=== PATIENT | male | born 1965 | race Caucasian/White ===

== ENCOUNTER 2016-06-19 18:50 | Emergency (ER) | payer BC, OTHER ==
[2016-06-19 20:13] VITALS: BP 150/101
--- NOTE | 2016-06-19 20:25 | UC ---
Shoulder Pain HPI - HPI Summary HPI Summary: works at [employer]. Left arm was hyperextend during a restraint this afternoon. Hurts to raise his arm - History of Current Complaint Chief Complaint: UCUpperExtremity Stated Complaint: SHOULDER INJURY-WC Time Seen by Provider: 06/19/16 20:17 Hx Obtained From: Patient Onset/Duration: Sudden Onset, Lasting Hours, Still Present Timing: Constant Severity Initially: Moderate Severity Currently: Moderate Location Of Pain: Is Discrete @ - anterior left shoulder Pain Intensity: 5 Pain Scale Used: 0-10 Numeric Character: Stiffness - and feels a click with movement Aggravating Factor(s): Movement, Lifting Alleviating Factor(s): Rest Associated Signs And Symptoms: Positive: Negative Related History: Occupational Injury, Dominant Hand Right - Allergies/Home Medications Allergies/Adverse Reactions: Allergies Allergy/AdvReac Type Severity Reaction Status Date / Time No Known Allergies Allergy Verified 06/19/16 20:07 Home Medications: Home Medications Bp Medication DAILY 06/19/16 [History] PMH/Surg Hx/FS Hx/Imm Hx Previously Healthy: No Cardiovascular History Of: Reports: Hypertension Denies: Pacemaker/ICD - Surgical History Surgical History: Yes Surgery Procedure, Year, and Place: PARTIAL THYROIDECTOMY - Family History Known Family History: Positive: None - Social History Occupation: Employed Full-time Lives: With Family Alcohol Use: None Substance Use Type: None Smoking Status (MU): Never Smoked Tobacco - Immunization History Most Recent Influenza Vaccination: March 2015 Most Recent Tetanus Shot: ~2009 Review of Systems Constitutional: Negative Skin: Negative Eyes: Negative ENT: Negative Respiratory: Negative Cardiovascular: Negative Gastrointestinal: Negative Genitourinary: Negative Motor: Decreased ROM - left shoulder Neurovascular: Negative Musculoskeletal: Arthralgia - anterior left shoulder Neurological: Negative Psychological: Negative All Other Systems Reviewed And Are Negative: Yes Physical Exam Triage Information Reviewed: Yes Appearance: Well-Appearing, Well-Nourished, Pain Distress - mild Vital Signs: Initial Vital Signs Temp 98.7 F 06/19/16 20:08 Pulse 81 06/19/16 20:08 Resp 18 06/19/16 20:08 BP 150/101 06/19/16 20:08 Pulse Ox 99 06/19/16 20:08 Vital Signs Reviewed: Yes Eye Exam: Normal Eyes: Positive: Conjunctiva Clear ENT Exam: Normal ENT: Positive: Normal ENT inspection, Hearing grossly normal. Negative: Nasal congestion, Nasal drainage, Tonsillar swelling, Tonsillar exudate, Trismus, Muffled/hoarse voice Neck exam: Normal Neck: Positive: Supple, Nontender, No Lymphadenopathy Respiratory Exam: Normal Respiratory: Positive: Chest non-tender, Lungs clear, Normal breath sounds, No respiratory distress, No accessory muscle use Cardiovascular Exam: Normal Cardiovascular: Positive: RRR, No Murmur, Pulses Normal, Brisk Capillary Refill Musculoskeletal: Positive: No Edema, Strength Limited @ - left shoulder, ROM Limited @ - left shoulder Neurological Exam: Normal Neurological: Positive: Alert, Muscle Tone Normal Psychological Exam: Normal Skin Exam: Normal Diagnostics - Laboratory Diagnostic Studies Completed/Ordered: Arthritic changes-no acute gordon injury Shoulder Course/Dx - Course Assessment/Plan: antiinflammatory, muscle relaxer, follow with orthopedic, patient refused time off from work - Differential Dx/Diagnosis Differential Diagnosis/HQI/PQRI: Arthritis, Fracture (Closed), Rotator Cuff Injury, Sprain, Strain Provider Diagnoses: Left shoulder strain Discharge - Discharge Plan Condition: Stable Disposition: HOME Prescriptions: Cyclobenzaprine TAB* [Flexeril TAB*] 10 mg PO TID PRN #10 tab PRN Reason: muscle spasm Patient Education Materials: Rotator Cuff Injury (ED) Referrals: Jose Aguirre MD [Medical Doctor] - 4 Days Shari Herring MD [Primary Care Provider] -
--- NOTE | 2016-06-19 21:13 | RAD ---
HISTORY: Left shoulder injury and pain COMPARISONS: None VIEWS: 3, Frontal internal rotation, external rotation, and outlet views of the left shoulder FINDINGS: BONE DENSITY: Normal. BONES: There is no displaced fracture. JOINTS: There is mild to moderate osteoarthritis of the a.c. and glenohumeral joints ALIGNMENT: There is no dislocation. SOFT TISSUES: Unremarkable. OTHER FINDINGS: None. IMPRESSION: OSTEOARTHRITIS. NO ACUTE OSSEOUS INJURY. IF SYMPTOMS PERSIST, RECOMMEND REPEAT IMAGING.
[2016-06-19] MEDS ORDERED: Cyclobenzaprine TAB* 10 MG PO ONE (21:27)
== END 2016-06-19 21:40 | disposition home or self-care (01) ==
LOC: UCCORT 18:50
DX: S46.912A Strain of unspecified muscle, fascia and tendon at shoulder and upper arm level, left arm, initial encounter (principal); X50.0XXA Overexertion from strenuous movement or load, initial encounter; I10 Essential (primary) hypertension
CPT/HCPCS: 99212; A9270-GY; G0463

== ENCOUNTER 2017-03-25 13:26 | Emergency (ER) | payer BC, OTHER ==
[2017-03-25 14:33] VITALS: BP 150/88
[2017-03-25] MEDS ORDERED: Tetan/Diph/Pertus SYR(Tdap)* 0.5 ML SYR(BOOSTRIX) use SYR IM ONE (14:59)
--- NOTE | 2017-03-25 15:05 | UC ---
Hand/Wrist HPI - HPI Summary HPI Summary: Left third finger crushed with a piece of wood last nigh, laceration on damon side of finger nail beed eechymotic - History Of Current Complaint Chief Complaint: UCUpperExtremity Stated Complaint: LEFT HAND MIDDLE FINGER INJURY Time Seen by Provider: 03/25/17 14:55 Hx Obtained From: Patient ?: No Mechanism Of Injury: crush injury Onset/Duration: Sudden Onset, Lasting Days - last night Severity Initially: Moderate Severity Currently: Moderate Pain Intensity: 6 Pain Scale Used: 0-10 Numeric Character Of Pain: Aching, Throbbing Alleviating Factor(s): Nothing Associated Signs And Symptoms: Positive: Swelling, Redness, Bruising Related History: Dominant Hand Right - Allergies/Home Medications Allergies/Adverse Reactions: Allergies Allergy/AdvReac Type Severity Reaction Status Date / Time No Known Allergies Allergy Verified 03/25/17 14:22 Home Medications: Home Medications Bisoprolol TAB* [Zebeta TAB*] 2.5 mg DAILY 03/25/17 [History Confirmed 03/25/17] PMH/Surg Hx/FS Hx/Imm Hx Previously Healthy: Yes Cardiovascular History: Hypertension Psychological History: Other Other Psychological History: Insomnia - Surgical History Surgical History: Yes Surgery Procedure, Year, and Place: PARTIAL THYROIDECTOMY - Family History Known Family History: Positive: None - Social History Occupation: Employed Full-time Lives: With Family Alcohol Use: None Substance Use Type: None Smoking Status (MU): Never Smoked Tobacco - Immunization History Most Recent Influenza Vaccination: 2017 Most Recent Tetanus Shot: ~2009 Vaccination Up to Date: No Review of Systems Constitutional: Negative Skin: Negative Eyes: Negative ENT: Negative Respiratory: Negative Cardiovascular: Negative Gastrointestinal: Negative Genitourinary: Negative Motor: Negative Neurovascular: Negative Musculoskeletal: Negative, Edema - distal left third finger Neurological: Negative Psychological: Negative Is Patient Immunocompromised?: No All Other Systems Reviewed And Are Negative: Yes Physical Exam Triage Information Reviewed: Yes Appearance: Well-Appearing, No Pain Distress, Well-Nourished Vital Signs: Initial Vital Signs Temp 98 F 03/25/17 14:23 Pulse 68 03/25/17 14:23 Resp 16 03/25/17 14:23 BP 150/88 03/25/17 14:23 Pulse Ox 100 03/25/17 14:23 Vital Signs Reviewed: Yes Eye Exam: Normal Eyes: Positive: Conjunctiva Clear ENT Exam: Normal ENT: Positive: Normal ENT inspection, Hearing grossly normal, Pharynx normal. Negative: Nasal congestion, Trismus, Muffled voice, Hoarse voice Neck exam: Normal Neck: Positive: Supple, Nontender Respiratory Exam: Normal Respiratory: Positive: Chest non-tender, No respiratory distress, No accessory muscle use Cardiovascular Exam: Normal Cardiovascular: Positive: RRR, No Murmur, Brisk Capillary Refill Musculoskeletal Exam: Other Musculoskeletal: Positive: Strength Limited @ - Distal left third finger, Edema @ - distal left third finger Neurological Exam: Normal Neurological: Positive: Alert, Muscle Tone Normal Psychological Exam: Normal Skin Exam: Other Skin: Positive: Other - Crush injury with open skin left third finger Diagnostics - Radiology No standard instances Xray Interpretation: Positive (See Comments) - no displased comminuted tuft fracture Radiology Interpretation Completed By: ED Physician Hand/Wrist Course/Dx - Course Course Of Treatment: dressing, antibiodic follow with hand surgeon - Differential Dx/Diagnosis Provider Diagnoses: open alfredo fracture left middle finger, Hypertension in poor control, up date tetanus vaccine Discharge - Discharge Plan Condition: Stable Disposition: HOME Prescriptions: Amoxicillin/Clavulanate TAB* [Augmentin TAB 875*] 875 mg PO BID #20 tab Ibuprofen TAB* [Motrin TAB* 800 MG] 800 mg PO Q8H #30 tab Patient Education Materials: Finger Fracture (ED), Skin Avulsion (ED), Hypertension (ED), Crush Injury (ED) Referrals: Antonio Hernández MD [Medical Doctor] - 4 Days Shari Herring MD [Primary Care Provider] - 2 Weeks
--- NOTE | 2017-03-25 15:31 | RAD ---
INDICATION: Injury COMPARISON: None TECHNIQUE: AP, lateral, and oblique views were obtained. FINDINGS: There is a comminuted fracture of the tuft with mild distraction. There are no other fractures. There is soft tissue swelling.. IMPRESSION: TUFT FRACTURE.
== END 2017-03-25 16:56 | disposition home or self-care (01) ==
LOC: UCCORT 13:26
DX: S62.663B Nondisplaced fracture of distal phalanx of left middle finger, initial encounter for open fracture (principal); W23.0XXA Caught, crushed, jammed, or pinched between moving objects, initial encounter; Y93.89 Activity, other specified; Y92.9 Unspecified place or not applicable; Z23 Encounter for immunization; I10 Essential (primary) hypertension; G47.00 Insomnia, unspecified; E89.0 Postprocedural hypothyroidism
CPT/HCPCS: 73140; 90471; 90715; 99213; G0463

== ENCOUNTER 2018-06-04 08:32 | Emergency (ER) | payer BC, OTHER ==
--- OUTSIDE RECORDS SUMMARY | 2018-06-04 08:43 | XMS REPORT | Continuity of Care Document ---
:1965 External Reference #:[id number] Author Name Shari Herring MD Address [address] [place] [address] Care Team Providers Name Role Phone Shari Herring MD Care Team Information Manager Of Training Unavailable Payers Type Date Identification Numbers Payment Provider Subscriber Effective: Policy Number: [id number] [facility] [employer] [place] 2011 PayID: [id number] [facility] [address] [place] [address] Advance Directives Description No Information Available Problems Date Description Provider Status Onset: 06/30/2013 Obstructive sleep apnea syndrome Shari Herring MD Active Onset: 12/29/2010 Insomnia Shari Herring MD Active Onset: 04/26/2015 Lack or loss of sexual desire Shari Herring MD Active Onset: 04/26/2015 Essential hypertension Shari Herring MD Active Onset: 04/26/2015 Malignant tumor of thyroid gland Shari Herring MD Active Onset: 05/27/2018 Low back pain Shari Herring MD Active Onset: 04/17/2016 Palpitations Shari Herring MD Active Family History Date Family Member(s) Problem(s) Comments General Alcoholism Father Alcoholism Father due to Liver Disease () - alcoholic Mother Cancer, Skin melanoma Social History Type Date Description Comments Sex Unknown Marital Status Lives With Spouse Lives With Daughter Lives With Son Pets 1 dog Pets 1 cat ETOH Use Denies alcohol use Tobacco Use Start: Unknown Patient has never smoked Smoking Status Reviewed: 05/27/18 Patient has never smoked Allergies, Adverse Reactions, Alerts Date Description Reaction Status Severity Comments 11/25/2009 Toprol XL ED Active 11/01/2015 Ambien Active Severe daytime sleepiness on CR formulation - short acting is ok Medications Medication Date Status Form Strength Qnty SIG Indications Ordering Provider Vardenafil HCL 05/27/ Active Tablets 20mg 18tab 1 by mouth F52.0 iNma, 2019 s daily as MD Shari needed Azelastine HCL 05/27/ Active Solution 0.15% 30ml 2 sprays J31.0 Nima (Nasal) 2018 each MD Shari nostril twice a day as needed for nasal congestion Meloxicam 04/17/ Active Tablets 15mg 30tab 1 tab by M54.5 Nima 2016 s mouth daily MD Shari for pain for 1-2 weeks, then daily as needed for pain Cyclobenzaprine 04/17/ Active Tablets 10mg 30tab 1 by mouth M54.5 TEGAN Herring 2015 s every at MD Shari bedtime x 1-2 weeks, then as needed muscle spasm Zolpidem Tartrate 10/31/ Active Tablets 10mg 30tab by mouth G47.00 Nima 2016 s every at MD Shari bedtime as needed insomnia mdd 1 Bisoprolol 07/01/ Hx Tablets 5mg 45tab 1/2 tab by Gadiel Herring 2016 - s mouth every MD Shari 05/27/ day 2019 Zolpidem Tartrate 05/18/ Hx Tablets 12.5mg 30tab 1 by mouth G47.00 Nima ER 2014 - ER s every at MD Shari 10/31/ bedtime as 2015 needed Levitra 05/18/ Hx Tablets 20mg 18tab 1 by mouth F52.0 Nima 2015 - s daily as MD Shari needed 2019 Levitra 12/15/ Hx Tablets 10mg 10tab 1 every day 302.71 Nima 2013 - s as needed MD Shari 2014 Enalapril Maleate 02/17/ Hx Tablets 10mg 90tab 1 by mouth 401.1 Nima 2012 - s every day MD Shari 2014 Zolpidem Tartrate 11/30/ Hx Tablets 10mg 30tab 1 by mouth 780.52 Nima 2008 - s every at MD Shari 05/18/ bedtime as 2014 needed insomnia; avoid daily use of this medicine due to risk of dependency Ambien / Hx Tablets 5mg 30tab po qhs prn Unknown 0000 - s for insomnia 2014 Bystolic / Hx Tablets 2.5mg 30tab 1 by mouth R00.2 Nima 0000 - s every day MD Shari 2016 I10 Immunizations CPT Code Status Date Vaccine Reaction Lot # [id number] Given 03/16/2018 Flu Vaccine NOS WORK Q2039 Given 02/26/2017 Flu Vaccine NOS Q2039 Given 02/15/2015 Flu Vaccine NOS [id number] Given 01/08/2014 Afluria Or Fluvirin Flu Vac Intramuscular 39789 Given 07/06/2011 Tdap (Adacel) Ages 7 And Above VIS DATE 03/27/08 Only Vital Signs Date Vital Result Comment 05/27/2018 8:40am Weight 249.00 lb Heart Rate 72 /min BP Systolic 122 mmHg BP Diastolic 80 mmHg Respiratory Rate 18 /min Height 70.50 inches 5'10.50" BMI (Body Mass Index) 35.2 kg/m2 11/12/2017 9:36am Weight 246.00 lb Heart Rate 76 /min BP Systolic 132 mmHg BP Diastolic 80 mmHg Respiratory Rate 18 /min Height 70.50 inches 5'10.50"05/14/17 BMI (Body Mass Index) 34.8 kg/m2 05/14/2017 8:44am Weight 244.00 lb Heart Rate 76 /min BP Systolic 132 mmHg BP Diastolic 90 mmHg Respiratory Rate 18 /min Height 70.50 inches 5'10.50"05/14/17 BMI (Body Mass Index) 34.5 kg/m2 11/06/2016 9:17am Weight 247.00 lb Heart Rate 76 /min BP Systolic 122 mmHg BP Diastolic 72 mmHg Respiratory Rate 18 /min Height 70.50 inches 5'10.50"04/17/16 BMI (Body Mass Index) 34.9 kg/m2 10/23/2016 3:21pm Weight 249.00 lb BP Systolic 132 mmHg BP Diastolic 80 mmHg Respiratory Rate 18 /min Height 70.50 inches 5'10.50"04/17/16 BMI (Body Mass Index) 35.2 kg/m2 04/17/2016 9:07am Weight 244.00 lb Heart Rate 76 /min BP Systolic 130 mmHg BP Diastolic 100 mmHg BP Systolic Recheck 128 mmHg BP Diastolic Recheck 78 mmHg Respiratory Rate 18 /min Height 70.50 inches 5'10.50"04/17/16 BMI (Body Mass Index) 34.5 kg/m2 11/01/2015 9:00am Weight 246.00 lb Heart Rate 82 /min BP Systolic 122 mmHg BP Diastolic 90 mmHg Respiratory Rate 18 /min Height 70.50 inches 5'10.50" BMI (Body Mass Index) 34.8 kg/m2 07/05/2015 3:58pm Weight 251.31 lb Heart Rate 62 /min BP Systolic 130 mmHg BP Diastolic 90 mmHg 04/26/2015 9:14am Weight 252.00 lb Heart Rate 84 /min BP Systolic 142 mmHg BP Diastolic 90 mmHg Respiratory Rate 18 /min Height 70.50 inches 5'10.50" Done On 05/18/14 BMI (Body Mass Index) 35.6 kg/m2 10/31/2014 10:42am Weight 247.00 lb Heart Rate 82 /min BP Systolic 140 mmHg BP Diastolic 90 mmHg Respiratory Rate 18 /min Height 70.50 inches 5'10.50" Done On 05/18/14 BMI (Body Mass Index) 34.9 kg/m2 05/18/2014 2:32pm Weight 237.00 lb Heart Rate 76 /min BP Systolic 160 mmHg BP Diastolic 100 mmHg Respiratory Rate 18 /min Height 70.50 inches 5'10.50" Done On 05/18/14 BMI (Body Mass Index) 33.5 kg/m2 03/27/2014 8:50am BP Systolic 122 mmHg BP Diastolic 76 mmHg 03/27/2014 8:50am Weight 244.00 lb Heart Rate 68 /min BP Systolic 146 mmHg BP Diastolic 90 mmHg Respiratory Rate 18 /min Height 70.75 inches 5'10.75" 12/15/2013 8:46am Weight 246.00 lb Heart Rate 66 /min BP Systolic 140 mmHg BP Diastolic 88 mmHg Respiratory Rate 18 /min Height 70.75 inches 5'10.75" 09/15/2013 8:58am Weight 248.00 lb Heart Rate 80 /min BP Systolic 140 mmHg BP Diastolic 80 mmHg Respiratory Rate 18 /min Height 71 inches 5'11" 06/30/2013 8:03am Weight 241.00 lb Heart Rate 84 /min BP Systolic 148 mmHg BP Diastolic 90 mmHg Respiratory Rate 18 /min Height 71 inches 5'11" 04/07/2013 9:48am Weight 247.00 lb Heart Rate 72 /min BP Systolic 130 mmHg BP Diastolic 90 mmHg Respiratory Rate 18 /min Height 70.25 inches 5'10.25" (Done On 08/05/12) 02/17/2013 10:56am Weight 245.00 lb Heart Rate 88 /min BP Systolic 130 mmHg BP Diastolic 80 mmHg Respiratory Rate 18 /min Height 70.25 inches 5'10.25" (Done On 08/05/12) 01/04/2013 9:47am BP Systolic 132 mmHg BP Diastolic 90 mmHg 01/04/2013 9:47am Weight 241.00 lb Heart Rate 80 /min BP Systolic 130 mmHg BP Diastolic 98 mmHg Respiratory Rate 18 /min Height 70.25 inches 5'10.25" (Done On 08/05/12) 08/05/2012 8:51am BP Systolic 122 mmHg BP Diastolic 82 mmHg 08/05/2012 8:51am Weight 231.00 lb Heart Rate 80 /min BP Systolic 142 mmHg BP Diastolic 100 mmHg Respiratory Rate 18 /min Height 70.25 inches 5'10.25" 01/04/2012 3:23pm Weight 230.00 lb Heart Rate 76 /min BP Systolic 138 mmHg BP Diastolic 90 mmHg Respiratory Rate 18 /min Height 71 inches 5'11" (Done On 07/06/11) 07/06/2011 3:28pm Weight 224.00 lb Heart Rate 92 /min BP Systolic 136 mmHg BP Diastolic 90 mmHg Respiratory Rate 18 /min Height 71 inches 5'11" 12/29/2010 1:16pm BP Systolic 122 mmHg BP Diastolic 70 mmHg 12/29/2010 1:16pm Weight 237.00 lb Heart Rate 88 /min BP Systolic 140 mmHg BP Diastolic 90 mmHg Respiratory Rate 18 /min Height 70.5 inches 5'10.50" (Done On 08/29/10) 08/29/2010 1:43pm BP Systolic 140 mmHg BP Diastolic 80 mmHg 08/29/2010 1:43pm Weight 234.00 lb Heart Rate 96 /min BP Systolic 142 mmHg BP Diastolic 80 mmHg Respiratory Rate 18 /min Height 70.5 inches 5'10.50" 05/23/2010 4:02pm BP Systolic 122 mmHg BP Diastolic 88 mmHg 05/23/2010 4:02pm Weight 242.00 lb Heart Rate 84 /min BP Systolic 130 mmHg BP Diastolic 90 mmHg Respiratory Rate 18 /min 05/08/2010 3:26pm Weight 245.00 lb Heart Rate 88 /min BP Systolic 140 mmHg BP Diastolic 94 mmHg Respiratory Rate 18 /min 11/25/2009 2:56pm Weight 244.00 lb Heart Rate 84 /min BP Systolic 124 mmHg BP Diastolic 80 mmHg Respiratory Rate 18 /min 06/03/2009 3:40pm Weight 234.00 lb Heart Rate 80 /min BP Systolic 130 mmHg BP Diastolic 80 mmHg Respiratory Rate 18 /min Height 71 inches 5'11" 11/30/2008 3:24pm BP Systolic 140 mmHg BP Diastolic 90 mmHg 11/30/2008 3:24pm Weight 237.00 lb Heart Rate 84 /min BP Systolic 150 mmHg BP Diastolic 94 mmHg Respiratory Rate 18 /min 07/02/2008 2:50pm Body Temperature 96.8 F Weight 232.00 lb Heart Rate 88 /min BP Systolic 130 mmHg BP Diastolic 90 mmHg Respiratory Rate 18 /min Height 70.5 inches 5'10.50" O2 % BldC Oximetry 98 % 11/29/2007 4:23pm Weight 244.00 lb Heart Rate 80 /min BP Systolic 120 mmHg BP Diastolic 84 mmHg Respiratory Rate 18 /min Height 18 inches 1'6" 10/17/2007 3:01pm BP Systolic 130 mmHg BP Diastolic 90 mmHg 10/17/2007 3:01pm Weight 246.00 lb Heart Rate 72 /min BP Systolic 130 mmHg BP Diastolic 102 mmHg Respiratory Rate 18 /min Height 18 inches 1'6" 09/23/2007 3:53pm Weight 248.56 lb Heart Rate 88 /min BP Systolic 142 mmHg BP Diastolic 100 mmHg Respiratory Rate 18 /min Height 18 inches 1'6" 08/29/2007 1:47pm BP Systolic 160 mmHg BP Diastolic 110 mmHg 08/29/2007 1:47pm Weight 247.00 lb Heart Rate 88 /min BP Systolic 158 mmHg BP Diastolic 100 mmHg Respiratory Rate 18 /min 08/12/2006 4:07pm Weight 237.00 lb Heart Rate 92 /min BP Systolic 140 mmHg BP Diastolic 96 mmHg Respiratory Rate 18 /min Results Test Date Facility Test Result H/L Range Note Laboratory test finding 05/20/2018 [facility] TSH 2.04 uIU/mL 0.35-4.94 T3,Free 2.61 pg/mL 1.71-3.71 Free T4 0.97 ng/dL 0.70-1.48 Laboratory test 11/06/2017 [facility] Prostate 1.02 ng/ mL < 4.0 1, 2 finding (315)- - Specific Antigen CBC With Auto 11/06/2017 [facility] White Blood 4.8 K/uL N 3.4-10.5 Diff (315)- - Count Red Blood Count 4.95 M/uL N 4.20-5.80 Hemoglobin 15.4 gm/dL N 12.8-17.0 Hematocrit 46.2 % N 38.0-48.0 Mean Cell Volume 93.3 fl N 80.0-96.0 Mean Corpuscular HGB 31.1 pg N 27.0-33.0 Mean Corpuscular HGB Conc 33.3 g/dL N 31.7-36.0 Platelet Count 222 K/uL N 155-360 Red Cell Distri Width SD 44.4 fl N 36-51 Red Cell Distri Width %CV 13.4 % N 11.6-15.8 Mean Platelet Volume 10.4 fL N 6.6-10.6 Neut% 48.0 % N 33.0-73.0 Lymph % 34.5 % N 20.0-42.0 [place] % 9.5 % N 0.0-10.0 Eo% 7.0 % High 0.0-6.6 Bas% 1.0 % N 0.0-1.1 Neut# 2.32 K/uL N 1.8-7.0 Lymph # 1.67 K/uL N 1.0-4.0 [place] # 0.46 K/uL N 0.0-0.8 Eos # 0.34 K/uL N 0.0-0.5 Baso # 0.05 K/uL N 0.0-0.1 Comprehensive Met 11/06/2017 [facility] Glucose 95 mg/dL N 74-106 Panel-FCMG (315)- - BUN 12 mg/dL N 7-18 Creatinine 1.1 mg/dL N 0.6-1.3 Glom Filtration Rate, Estimate >60 mL/min >60 If >60 mL/min >60 3 BUN/Creat 10.9 ratio Sodium 141 mmol/L N 136-145 Potassium 4.1 mmol/L 3.5-5.1 Chloride 108 mmol/L High 98-107 Carbon Dioxide 26 mmol/L N 21-32 Anion Gap 7 mEq/L Low 8-16 Calcium 8.7 mg/dL N 8.5-10.1 Total Protein 7.6 g/dL N 6.4-8.2 Albumin 3.9 g/dL N 3.4-5.0 Globulin 3.7 g/dL N 1.9-4.3 Alb/Glob 1.1 ratio Bilirubin,Total 0.6 mg/dL N 0.2-1.0 Sgot/Ast 30 U/L N 15-37 SGPT/Alt 45 U/L N 12-78 Alkaline Phosphatase 56 U/L N 45-117 Lipid 11/06/2017 [facility] Cholesterol 167 mg/dL < 200 4 (315)- - Triglycerides 86 mg/dL <150 5 HDL Cholesterol 49 mg/dL >40 6 LDL-Cholesterol 101 mg/dL < 100 7 Laboratory test finding 04/26/2017 [facility] TSH 1.49 uIU/mL 0.35-4.94 8 Free T4 0.90 ng/dL 0.70-1.48 T3,Free 2.95 pg/mL 1.71-3.71 Comprehensive Met Panel-FCMG 11/02/2016 [facility] Sodium 142 mmol/L 135- 146 9, 10 Potassium 4.2 mmol/L 3.5-5.2 Chloride# 106 mmol/L 97-110 11 Carbon Dioxide 25 mmol/L 24-34 Glucose 96 mg/dL 70-105 BUN 16 mg/dL 6-26 Creatinine 1.2 mg/dL 0.5-1.4 Calcium 9.4 mg/dL 8.5-10.2 Total Protein 6.7 g/dL 6.0-8.0 Albumin 4.2 g/dL 3.6-4.9 Globulin 2.5 g/dL 2.0-3.5 A/G Ratio 1.7 Ratio 1.0-2.2 Total Bilirubin 0.7 mg/dL 0.1-1.3 Alkaline Phosphatase 50 U/L 24-140 Alt 34 U/L 3-42 Ast 30 U/L 8-42 Shante Egfr >60 >60 12 Non Shante Egfr >60 >60 13 Anion Gap 15 mmol/L 7-16 14 CBC With Auto Diff 11/02/2016 [facility] WBC 5.2 K/uL 4.1-11.0 RBC 4.80 M/uL 4.60-6.10 Hemoglobin 14.8 gm/dL 13.5-18.0 Hematocrit 44.6 % 41.0-53.0 MCV 92.7 fL 80.0-97.0 MCH 30.8 pg 27.0-32.0 MCHC 33.2 g/dL 32.0-36.0 RDW 13.7 % 11.5-14.5 PLT Count 221 K/ul 140-400 Neutrophil 47.4 % 35.0-75.0 Lymphocyte 35.7 % 16.0-52.0 Monocyte 10.4 % High 2.0-10.0 Eosinophil 6.0 % High 0.0-5.0 Basophil 0.5 % 0.0-4.0 Abs Neutrophils 2.5 K/uL 2.1-8.0 Abs Lymphocytes 1.9 K/uL 0.8-5.5 Abs Monocytes 0.5 K/uL 0.1-1.0 Abs Eosinophils 0.3 K/uL 0.0-0.5 Abs Basophils 0.0 K/uL 0.0-0.3 Laboratory test finding 11/02/2016 [facility] TSH 1.88 uIU/mL 0.35-4.94 Laboratory test finding 11/02/2016 [facility] PSA 0.950 ng/mL 0.000-4.000 15 Free T4 0.81 ng/dL 0.70-1.48 T3,Free 3.06 pg/mL 1.71-3.71 Hepatitis C Virus Antibody NONREACTIVE Nonreactive Lipid 11/02/2016 [facility] Cholesterol 161 mg/dL 50-199 Triglycerides 49 mg/dL 30-200 HDL 46 mg/dL 29-71 16 Chol/ HDL Ratio 3.5 ratio Low 4.0-6.7 VLDL 10 mg/dL 2-29 LDL (Calc) 106 mg/dL High 20-99 17 Comprehensive Metabolic (CMP) 11/01/2015 [facility] Sodium 137 mmol/L 134- 142 18 Potassium 4.5 mmol/L 3.5-5.2 Chloride 104 mmol/L 97-109 Carbon Dioxide 31 mmol/L 24-34 Glucose 86 mg/dL 70-105 BUN 13 mg/dL 6-26 Creatinine 1.2 mg/dL 0.5-1.4 Calcium 9.9 mg/dL 8.5-10.2 Total Protein 7.4 g/dL 6.0-8.0 Albumin 4.4 g/dL 3.6-4.9 Globulin 3.0 g/dL 2.0-3.5 A/G Ratio 1.5 Ratio 1.0-2.2 Total Bilirubin 0.7 mg/dL 0.1-1.3 Alkaline Phosphatase 47 U/L 24-140 Alt 39 U/L 3-42 Ast 21 U/L 8-42 Anion Gap 7 mmol/L 6-14 Shante Egfr >60 >60 19 Non Shante Egfr >60 >60 20 CBC With Auto Diff 11/01/2015 [facility] WBC 4.4 K/uL 4.1-11.0 RBC 4.93 M/uL 4.60-6.10 Hemoglobin 15.2 gm/dL 13.5-18.0 Hematocrit 45.3 % 41.0-53.0 MCV 92.0 fL 80.0-97.0 MCH 30.8 pg 27.0-32.0 MCHC 33.4 g/dL 32.0-36.0 RDW 14.3 % 11.5-14.5 PLT Count 220 K/ul 140-400 Neutrophil 57.7 % 35.0-75.0 Lymphocyte 27.9 % 16.0-52.0 Monocyte 8.6 % 2.0-10.0 Eosinophil 5.1 % High 0.0-5.0 Basophil 0.7 % 0.0-4.0 Abs Neutrophils 2.5 K/uL 2.1-8.0 Abs Lymphocytes 1.2 K/uL 0.8-5.5 Abs Monocytes 0.4 K/uL 0.1-1.0 Abs Eosinophils 0.2 K/uL 0.0-0.5 Abs Basophils 0.0 K/uL 0.0-0.3 Laboratory test finding 11/01/2015 [facility] TSH 1.64 uIU/mL 0.35-4.94 Lipid 11/01/2015 [facility] Cholesterol 162 mg/dL 50-199 Triglycerides 85 mg/dL 30-200 HDL 48 mg/dL 29-71 21 Chol/ HDL Ratio 3.4 ratio Low 4.0-6.7 VLDL 17 mg/dL 2-29 LDL (Calc) 97 mg/dL 20-99 22 Laboratory test finding 11/01/2015 [facility] PSA 0.950 ng/mL 0.000-4.000 23 Free T4 0.87 ng/dL 0.70-1.48 T3,Free 2.43 pg/mL 1.71-3.71 Comprehensive Metabolic 07/06/2015 [facility] Glucose 138 mg/dL High 74-106 Panel (315)- - BUN 16 mg/dL 7-18 Creatinine 1.4 mg/dL High 0.6-1.3 Glom Filtration Rate, Estimate 57 mL/min >60 If >60 mL/min >60 24 BUN/Creat 11.4 ratio Sodium 143 mmol/L 136-145 Potassium 3.3 mmol/L Low 3.5-5.1 Chloride 108 mmol/L High 98-107 Carbon Dioxide 24 mmol/L 21-32 Anion Gap 11 mEq/L 8-16 Calcium 9.1 mg/dL 8.5-10.1 Total Protein 8.7 g/dL High 6.4-8.2 Albumin 4.4 g/dL 3.4-5.0 Globulin 4.3 g/dL 1.9-4.3 Alb/Glob 1.0 ratio Bilirubin,Total 0.8 mg/dL 0.2-1.0 Sgot/Ast 32 U/L 15-37 SGPT/Alt 59 U/L 12-78 Alkaline Phosphatase 65 U/L 45-117 Laboratory test 07/06/2015 [facility] Troponin-I < 0.015 ng/mL 25 finding (315)- - TSH Reflex FT4 and/or FT3 2.12 uIU/mL 0.36-3.74 26 CBC W/Automated Diff 07/06/2015 [facility] White Blood 6.0 K/uL 3.4-10.5 (315)- - Count Red Blood Count 5.27 M/uL 4.20-5.80 Hemoglobin 15.8 gm/dL 12.8-17.0 Hematocrit 47.6 % 38.0-48.0 Mean Cell Volume 90.3 fl 80.0-96.0 Mean Corpuscular HGB 30.0 pg 27.0-33.0 Mean Corpuscular HGB Conc 33.2 g/dL 31.7-36.0 Platelet Count 243 K/uL 150-400 Red Cell Distri Width SD 42.6 fl 36-51 Red Cell Distri Width %CV 12.9 % 11.6-15.8 Mean Platelet Volume 10.7 fL High 6.6-10.6 Neut% 63.0 % 33.0-73.0 Lymph % 26.1 % 17.0-56.0 [place] % 8.4 % 0.0-10.0 Eo% 1.8 % 0.0-5.0 Bas% 0.7 % 0.1-1.0 Neut# 3.76 K/uL 1.8-7.0 Lymph # 1.56 K/uL Low 1.8-7.0 [place] # 0.50 K/uL 0.0-0.8 Eos # 0.11 K/uL 0.0-0.5 Baso # 0.04 K/uL Low 0.1-0.2 Laboratory test finding 10/26/2014 [facility] PSA 0.930 ng/mL 0.000-4.000 27, 28 Basic (BMP) 10/26/2014 [facility] Sodium 139 mmol/L 134-142 Potassium 4.2 mmol/L 3.5-5.2 Chloride 105 mmol/L 97-109 Carbon Dioxide 33 mmol/L 24-34 Glucose 98 mg/dL 70-105 BUN 16 mg/dL 6-26 Creatinine 1.1 mg/dL 0.5-1.4 Calcium 9.5 mg/dL 8.5-10.2 Anion Gap 5 mmol/L Low 6-14 Non Shante Egfr >60 >60 29 Shante Egfr >60 >60 30 CBC With Auto Diff 10/26/2014 [facility] WBC 4.5 K/uL 4.1-11.0 RBC 4.91 M/uL 4.60-6.10 Hemoglobin 14.9 gm/dL 13.5-18.0 Hematocrit 45.2 % 41.0-53.0 MCV 92.1 fL 80.0-97.0 MCH 30.4 pg 27.0-32.0 MCHC 33.0 g/dL 32.0-36.0 RDW 14.1 % 11.5-14.5 PLT Count 223 K/ul 140-400 Neutrophil 49.6 % 35.0-75.0 Lymphocyte 31.9 % 16.0-52.0 Monocyte 11.1 % High 2.0-10.0 Eosinophil 6.3 % High 0.0-5.0 Basophil 1.1 % 0.0-4.0 Abs Neutrophils 2.2 K/uL 2.1-8.0 Abs Lymphocytes 1.4 K/uL 0.8-5.5 Abmon 0.5 K/uL 0.1-1.0 Abs Eosinophils 0.3 K/uL 0.0-0.5 Abs Basophils 0.0 K/uL 0.0-0.3 Lipid 10/26/2014 [facility] Cholesterol 170 mg/dL 50-199 Triglycerides 43 mg/dL 30-200 HDL 47 mg/dL 29-71 31 Chol/ HDL Ratio 3.6 ratio Low 4.0-6.7 VLDL 9 mg/dL 2-29 LDL (Calc) 114 mg/dL High 20-99 32 Laboratory test finding 10/26/2014 [facility] TSH 2.00 uIU/mL 0.35-4.94 Laboratory test finding 12/15/2013 N2N/CCD Import % Baso. 1.8 % 0.0-2.0 % Eos. 6.9 % High 0.0-4.0 % Lymph 32 % 20-44 % [place] 10.2 % High 2.0-10.0 % Noe 50 % 50-70 Absolute Baso. 0.1 K/ul 0.0-0.3 Absolute Eos. 0.3 K/ul 0.0-0.5 Absolute Lymph. 1.4 K/ul 0.8-4.8 Absolute [place]. 0.4 K/ul 0.1-1.0 Absolute Noe. 2.13 K/ul 2.05-7.63 Alt 50.0 U/L 21.0-72.0 Ast 38.0 U/L 17.0-59.0 BUN 16.0 mg/dL 9.0-21.0 BUN/Creat Ratio 13.3 ratio 12.0-20.0 Calcium 9.8 mg/dL 8.7-10.5 Chloride 108.0 mmol/L High 98.0-107.0 Co2 26.0 mmol/L 22.0-30.0 Creatinine-Serum 1.2 mg/dL 0.8-1.5 FT4 0.80 ng/dL 0.75-1.54 Glucose 141.0 mg/dL High 75.0-110.0 HCT 44.7 % 37.0-51.0 HGB 14.5 Gm/dl 12.0-16.0 MCH 30.5 pg 26.0-32.0 MCHC 32.6 g/dL 31.0-36.0 MCV 93.6 Fl 80.0-97.0 MPV 7.1 fL 6.0-10.0 PLT 253 K/ul 140-440 Potasium 4.7 mmol/L 3.6-5.0 RBC 4.8 M/ul 4.2-6.3 RDW 12.4 % 11.5-14.5 Sodium 141.0 mmil/L 137.0-145.0 TSH 2.37 uIU/ml 0.50-6.00 Triiodothyronine,Total 127 ng/dL 71-180 33 WBC 4.3 K/ul 4.1-10.9 eGFR 68.4 Lipid Panel 12/15/2013 N2N/CCD Import Chol/HDL Ratio 4.1 ratio Cholesterol 183.0 mg/dL 50.0-199.0 HDL 45.0 mg/dL 29.0-67.0 LDL, Calculated 126.6 mg/dL 20.0-129.0 Triglycerides 57.0 mg/dL 30.0-249.0 vLDL 11.4 ng/dL Laboratory test finding 06/24/2012 N2N/CCD Import % Baso. 1.4 % 0.0-2.0 % Eos. 6.2 % High 0.0-4.0 % Lymph 35 % 20-44 % [place] 8.5 % 2.0-10.0 % Noe 49 % Low 50-70 A/G Ratio 1.2 ratio Low 1.6-2.2 Absolute Baso. 0.1 K/ul 0.0-0.3 Absolute Eos. 0.3 K/ul 0.0-0.5 Absolute Lymph. 1.8 K/ul 0.8-4.8 Absolute [place]. 0.5 K/ul 0.1-1.0 Absolute Noe. 2.60 K/ul 2.05-7.63 Albumin 4.1 g/dL 3.5-5.0 Alk. Phos. 55.0 U/L 30.0-126.0 Alt 33.0 U/L 21.0-72.0 Anion Gap 10.0 mmol/L 10.0-20.0 Ast 25.0 U/L 17.0-59.0 BUN 15.0 mg/dL 9.0-21.0 BUN/Creat Ratio 12.5 ratio 12.0-20.0 Calcium 10.0 mg/dL 8.7-10.5 Chloride 106.0 mmol/L 98.0-107.0 Co2 26.0 mmol/L 22.0-30.0 Creatinine-Serum 1.2 mg/dL 0.8-1.5 Globulin 3.4 g/dL 2.7-4.3 Glucose 98.0 mg/dL 75.0-110.0 HCT 48.4 % 37.0-51.0 HGB 14.9 Gm/dl 12.0-16.0 MCH 28.8 pg 26.0-32.0 MCHC 30.7 g/dL Low 31.0-36.0 MCV 93.6 Fl 80.0-97.0 MPV 7.0 fL 6.0-10.0 PLT 261 K/ul 140-440 Potasium 4.1 mmol/L 3.6-5.0 RBC 5.2 M/ul 4.2-6.3 RDW 12.7 % 11.5-14.5 Sodium 142.0 mmil/L 137.0-145.0 Total Bilirubin 0.8 mg/dL 0.2-1.3 Total Protein 7.5 g/dL 6.3-8.2 WBC 5.3 K/ul 4.1-10.9 eGFR 70.9 mi/minper1.7 34 Laboratory test 04/27/2012 N2N/CCD Import Thyroid,Lobe/Total RSXN + See Note 35 finding FS Laboratory test 07/06/2011 N2N/CCD Import Alb/Glob 1.3 ratio finding Albumin 4.1 g/dL 3.5-5.0 Alkaline Phosphatase 53 U/L 50-136 Anion Gap 12 mEq/L 8-16 BUN 15 mg/dL 5-23 BUN/Creat 15.0 ratio Bas% 0.7 % 0.1-1.0 Baso # 0.04 K/uL Low 0.1-0.2 Bilirubin,Total 0.5 mg/dL 0.2-1.2 Calcium 9.3 mg/dL 8.5-10.1 Carbon Dioxide 28 mEq/L 18-29 Chloride 107 mmol/L 98-107 Creatinine 1.0 mg/dL 0.5-1.4 Eo% 5.3 % High 0.0-5.0 Eos # 0.30 K/uL 0.0-0.5 Free T4 1.19 ng/dL 0.71-1.85 Globulin 3.2 g/dL 1.9-4.3 Glom Filtration Rate, Estimate >60 mL/min >60 Glucose 92 mg/dL 76-115 Hematocrit 44.4 % 38.0-48.0 Hemoglobin 14.6 gm/dL 12.8-17.0 If >60 mL/min >60 36 Lymph # 1.70 K/uL 1.2-4.0 Lymph % 30.2 % 17.0-56.0 Mean Cell Volume 88.8 fl 80.0-96.0 Mean Corpuscular HGB 29.2 pg 27.0-33.0 Mean Corpuscular HGB Conc 32.9 g/dL 31.7-36.0 Mean Platelet Volume 11.0 fL High 6.6-10.6 [place] # 0.71 K/uL High 0.0-0.6 [place] % 12.6 % High 0.0-10.0 Neut# 2.88 K/uL 1.8-7.0 Neut% 51.2 % 33.0-73.0 Platelet Count 280 K/uL 150-400 Potassium 4.1 mmol/L 3.5-5.1 Red Blood Count 5.00 M/uL 4.20-5.80 Red Cell Distri Width %CV 12.8 % 11.6-15.8 Red Cell Distri Width SD 40.6 fl 36-51 SGPT/Alt 44 U/L 30-65 Sgot/Ast 28 U/L 16-40 Sodium 143 mmol/L 136-145 Thyroid Stim Hormone < 0.01 uIU/mL Low 0.49-4.67 37 Total Protein 7.3 g/dL 6.3-8.0 White Blood Count 5.6 K/uL 3.4-10.5 Laboratory test finding 12/29/2010 N2N/CCD Import A/G Ratio 1.3 1.0-2.2 38 Albumin 3.9 g/dL 3.5-5.0 Alkaline Phosphatase 66 U/L 30-126 Alt 45 U/L 21-72 Ast 32 U/L 17-59 BUN 14 mg/dL 9-21 BUN/CR Ratio 13.0 Ratio 12-20 Calcium 9.3 mg/dL 8.7-10.5 Carbon Dioxide 29 mmol/L 22-30 Chloride 105 mmol/L 98-107 Creatinine, Serum 1.1 mg/dL 0.8-1.5 Free T4 1.17 ng/dL 0.75-1.54 Globulin 3.1 g/dL 2.7-4.3 Glucose 94 mg/dL 75-110 Potassium 4.3 mmol/L 3.6-5.0 Sodium 145 mmol/L 137-145 TSH Result Is Less T <See Note> uIU/ml 39 Total Bilirubin 0.5 mg/dL 0.2-1.3 Total Protein 7.0 g/dL 6.3-8.2 Testosterone,Free/Weakly 05/08/2010 N2N/[place] Import Testosterone,%Free/ Weakly 16.9 9.0-46.0 Bound BND % Testosterone,Free+Weakly Bound 135.7 ng/dL 40.0-250.0 40 Testosterone,Serum 803 ng/dL 249-836 41 Laboratory test finding 05/08/2010 N2N/[place] Import Free T4 1.16 ng/dL 0.71-1.85 42 Thyroid Stim Hormone < 0.02 uIU/mL Low 0.49-4.67 43 Triiodothyronine,Total 161 ng/dL 71-180 44 Lipid Panel 12/05/2009 N2N/[place] Import Chol/HDL Ratio 3.8 45, 46 Cholesterol 177 mg/dL 50-199 HDL Cholesterol 46 mg/dL 29-67 LDL 119 mg/dL 20-129 Triglycerides 58 mg/dL 30-249 VLDL Cholesterol 12 mg/dL Laboratory test finding 12/05/2009 N2N/[place] Import A/G Ratio 1.4 1.0-2.2 Albumin 4.2 g/dL 3.5-5.0 Alkaline Phosphatase 61 U/L 30-126 Alt 61 U/L 21-72 Ast 44 U/L 17-59 BUN 11 mg/dL 9-21 BUN/CR Ratio 10.0 Ratio Low 12-20 Calcium 9.8 mg/dL 8.7-10.5 Carbon Dioxide 27 mmol/L 22-30 Chloride 106 mmol/L 98-107 Creatinine, Serum 1.1 mg/dL 0.8-1.5 Free T4 1.03 ng/dL 0.75-1.54 Globulin 3.1 g/dL 2.7-4.3 Glucose 92 mg/dL 75-110 Potassium 4.3 mmol/L 3.6-5.0 Sodium 141 mmol/L 137-145 TSH 0.012 uIU/ml Low 0.50-6.00 47 Total Bilirubin 0.8 mg/dL 0.2-1.3 Total Protein 7.3 g/dL 6.3-8.2 Laboratory test finding 06/03/2009 N2N/CCD Import A/G Ratio 1.3 1.0-2.2 48 Albumin 4.2 g/dL 3.5-5.0 Alkaline Phosphatase 57 U/L 30-126 Alt 38 U/L 21-72 Ast 29 U/L 17-59 BUN 12 mg/dL 9-21 BUN/CR Ratio 11.3 Ratio Low 12-20 Calcium 9.5 mg/dL 8.7-10.5 Carbon Dioxide 29 mmol/L 22-30 Chloride 105 mmol/L 98-107 Creatinine, Serum 1.1 mg/dL 0.8-1.5 Free T4 1.27 ng/dL 0.75-1.54 Globulin 3.2 g/dL 2.7-4.3 Glucose 83 mg/dL 75-110 Potassium 4.2 mmol/L 3.6-5.0 Sodium 142 mmol/L 137-145 TSH Result Is Less T <See Note> uIU/ml 49 Total Bilirubin 0.5 mg/dL 0.2-1.3 Total Protein 7.4 g/dL 6.3-8.2 Laboratory test finding 11/30/2008 N2N/CCD Import Atypical Lymph% 2 % 0- 7 Basophil% 1 % 0-2 CBS W/Automated Diff Canceled By Lab 50 Eosinophil% 19 % High 0-5 Hematocrit 46.0 % 38.0-48.0 Hemoglobin 15.3 gm/dL 12.8-17.0 Lymph% 30 % 17-56 Mean Cell Volume 90.0 fl 80.0-96.0 Mean Corpuscular HGB 29.9 pg 27.0-33.0 Mean Corpuscular HGB Conc 33.3 g/dL 31.7-36.0 Mean Platelet Volume 10.5 fL 6.6-10.6 Monocyte% 6 % 0-10 Neutrophils% 42 % 33-73 Platelet Count 264 K/uL 150-400 Platelet Estimate Normal RBC Morphology Normal Red Blood Count 5.11 M/uL 4.20-5.80 Red Cell Distri Width %CV 13.3 % 11.6-15.8 Total Cells Counted 100 #CELLS White Blood Count 5.2 K/uL 3.4-10.5 Laboratory test finding 11/30/2008 N2N/[place] Import A/G Ratio 1.4 1.0-2.2 Albumin 4.5 g/dL 3.5-5.0 Alkaline Phosphatase 66 U/L 30-126 Alt 48 U/L 21-72 Ast 37 U/L 17-59 BUN 14 mg/dL 9-21 BUN/CR Ratio 13.0 Ratio 12-20 Calcium 10.1 mg/dL 8.7-10.5 Carbon Dioxide 26 mmol/L 22-30 Chloride 104 mmol/L 98-107 Creatinine, Serum 1.1 mg/dL 0.8-1.5 Free T4 1.17 ng/dL 0.75-1.54 Globulin 3.2 g/dL 2.7-4.3 Glucose 108 mg/dL 75-110 Potassium 4.4 mmol/L 3.6-5.0 Sodium 140 mmol/L 137-145 TSH Result Is Less T <See Note> uIU/ml 51 Total Bilirubin 0.5 mg/dL 0.2-1.3 Total Protein 7.7 g/dL 6.3-8.2 Lipid Panel 11/30/2008 [facility] Import Chol/HDL Ratio 4.3 52 Cholesterol 196 mg/dL 50-199 HDL Cholesterol 45 mg/dL 29-67 LDL 128 mg/dL 20-129 Triglycerides 116 mg/dL 30-249 VLDL Cholesterol 23 mg/dL Laboratory test finding 07/02/2008 [facility] Import A/G Ratio 1.5 Absolute Basophils 0.0 Absolute Eosinophils 0.2 Absolute Lymphocytes 1.7 Absolute Monocytes 0.4 Absolute Neutrophils 2.2 Albumin 4.5 Alkaline Phosphatase 63 Alt 47 Ast 30 BUN 15 BUN/CR Ratio 13.5 Basophil 0.7 Calcium 10.1 Carbon Dioxide 28 Chloride 104 Creatinine, Serum 1.1 Eosinophil 5.2 High Free T4 1.39 Globulin 3.0 Glucose 107 Hematocrit 46.2 Hemoglobin 14.9 Lymphocytes 36.7 MCH 28.3 MCHC 32.3 MCV 88 Monocytes 8.5 Neutrophils 48.9 Low Platelet Count 272 Potassium 3.9 RBC 5.27 RDW 12.7 Sodium 144 TSH Result Is Less T <See Note> 53 Total Bilirubin 0.8 Total Protein 7.5 Triiodothyronine,Total 169 ng/dL 85-205 WBC 4.6 Lipid Panel 07/02/2008 N2N/CCD Import Chol/HDL Ratio 4.2 54 Cholesterol 180 HDL Cholesterol 42 LDL 125 Triglycerides 66 VLDL Cholesterol 13 Laboratory test finding 08/29/2007 N2N/CCD Import A/G Ratio 1.7 1.0-2.2 Absolute Basophils 0.03 K/ul 0.0-0.3 Absolute Eosinophils 0.24 K/ul 0.0-0.5 Absolute Lymphocytes 1.88 K/ul 0.8-4.8 Absolute Monocytes 0.35 K/ul 0.1-1.0 Absolute Neutrophils 2.49 K/ul 2.05-7.63 Albumin 4.9 g/dL 3.5-5.0 Alkaline Phosphatase 76 U/L 38-126 Alt 54 U/L 21-72 Ast 39 U/L 17-59 BUN 13 mg/dL 9-21 BUN/CR Ratio 11.6 Ratio Low 12-20 Basophil 0.6 % 0-2 Calcium 10.2 mg/dL 8.7-10.5 Carbon Dioxide 28 mmol/L 22-30 Chloride 103 mmol/L 98-107 Creatinine, Serum 1.1 mg/dL 0.8-1.5 Eosinophil 4.9 % High 0-4 Globulin 2.9 g/dL 2.7-4.3 Glucose 90 mg/dL 75-110 Hematocrit 45.2 % 37.0-51.0 Hemoglobin 15.2 GM/dl 12.0-16.0 Lymphocytes 37.6 % 20-44 MCH 29.7 pg 26.0-32.0 MCHC 33.7 g/dL 31.0-36.0 MCV 88 FL 80-97 Monocytes 7.1 % 2-10.0 Neutrophils 49.8 % Low 50-70 Platelet Count 278 K/ul 140-440 Potassium 4.2 mmol/L 3.6-5.0 RBC 5.13 M/ul 4.2-6.3 RDW 12.8 % 11.5-14.5 Sodium 143 mmol/L 137-145 TSH Result Is Less T <See Note> uIU/ml 55 Total Bilirubin 0.5 mg/dL 0.2-1.3 Total Protein 7.7 g/dL 6.3-8.2 WBC 5.0 K/ul 4.1-10.9 Laboratory test finding 08/12/2006 N2N/CCD Import Anion Gap 15 mmol/L 10 -20 56 BUN 14 mg/dL 9-21 BUN/CR Ratio 12.9 Ratio 12-20 Calcium 10.3 mg/dL 8.7-10.5 Carbon Dioxide 27 mmol/L 22-30 Chloride 105 mmol/L 98-107 Creatinine, Serum 1.1 mg/dL 0.8-1.5 Glucose 106 mg/dL 75-110 Potassium 4.3 mmol/L 3.6-5.0 Sodium 142 mmol/L 137-145 Hepatic Function 08/12/2006 N2N/CCD Import Albumin 4.6 g/dL 3.5-5.0 Alkaline Phosphatase 71 U/L 38-126 Alt 56 U/L 21-72 Ast 35 U/L 17-59 Total Bilirubin 0.7 mg/dL 0.2-1.3 Total Protein 7.6 g/dL 6.3-8.2 Lipid Panel 08/12/2006 N2N/CCD Import Chol/HDL Ratio 3.5 57 Cholesterol 192 mg/dL 50-199 HDL Cholesterol 54 mg/dL 29-67 LDL 127 mg/dL 20-129 Triglycerides 55 mg/dL 30-249 VLDL Cholesterol 11 mg/dL Laboratory test finding 08/12/2006 N2N/CCD Import Hematocrit 47.8 % 38.0 -48.0 Hemoglobin 16.4 gm/dL 12.8-17.0 Mean Cell Volume 88.8 fL 80.0-96.0 Mean Corpuscular HGB 30.4 pg 27.0-33.0 Mean Corpuscular HGB Conc 34.3 g/dL 31.7-36.0 Mean Platelet Volume 7.9 fl 6.6-10.6 Platelet Count 263 K/uL 150-400 Red Blood Count 5.38 M/uL 4.20-5.80 Red Cell Distri Width %CV 13.7 % 11.6-15.8 White Blood Count 5.0 K/uL 3.4-10.5 1 Z12.5, I10 2 THIS ASSAY IS NOT INTENDED A CANCER SCREENING TEST The concentration of PSA in a given specimen, determined with assays from different manufacturers, can vary due to differences in assay methods and reagent specificity. Values obtained from different assay methods cannot be used interchangeably. Method: [employer] Chemiluminescent immunoassay. 3 Note: Persistent reduction for 3 months or more in an eGFR <60 mL/min/1.73 m2 defines CKD. Patients with eGFR values >/=60 mL/min/1.73 m2 may also have CKD if evidence of persistent proteinuria is present. The original MDRD equation for estimated GFR is not valid for patients less than 18 years of age. Additional information may be found at www.kdoqi.org. 4 Reference Guidelines*: Desirable: ........... < 200 mg/dL Borderline High: ..... 200-239 mg/dL High: ................ >=240 mg/dL * The National Cholesterol Education Program (NCEP) 5 Reference Guidelines*: Normal: ............. < 150 mg/dL Borderline High: .... 150-199 mg/dL High: ............... 200-499 mg/dL Very High: .......... > 500 mg/dL * Source: National Cholesterol Education Program (NCEP) 6 Reference Guidelines*: Low HDL: ..... < 40 mg/dL Normal: ..... 40-60 mg/dL Desirable: ... > 60 mg/dL *The National Cholesterol Education Program(NCEP) 7 Reference Guidelines*: Optimal:........... <100 mg/dL Near Optimal....... 100-129 mg/dL Borderline High.... 130-159 mg/dL High............... 160-189 mg/dL Very High.......... >=190 mg/dL * Source: National Cholesterol Education Program (NCEP) 8 6 mos 9 after 10/31/16 10 Updated reference range on new analyzer 11 Updated reference range on new analyzer 12 Concerning GFR Guidelines for Americans: Normal function or mild renal disease, if clinically at risk: >/=60 mL/min Moderately decreased: 30-59 Severely decreased: 15-29 Renal failure: <15 13 Concerning GFR Guidelines: Normal function or mild renal disease, if clinically at risk: >/=60 mL/min Moderately decreased: 30-59 Severely decreased: 15-29 Renal failure: <15 Glomerular Filtration Rate (GFR) is estimated based on the MDRD equation, which assumes a steady state for creatinine as recommended by the National Kidney Disease Education Program in conjunction with the National Institutes of Health and the National Kidney Foundation. Clinical conditions in which it may be necessary to measure GFR by using clearance methods include extremes of age and body size, severe malnutrition or obesity, diseases of skeletal muscle, paraplegia or quadriplegia, vegetarian diet, rapidly changing kidney function, and calculation of the dose of potentially toxic drugs that are excreted by the kidneys. 14 Updated reference range on new analyzer 15 Beginning 07/05/06 PSA values assayed at [facility] uses chemiluminescence methodology manufactured by [employer] for use on the DXI analyzer. Values obtained with different assay methods or kits can not be used interchangeably. Serum PSA measurement is not an absolute test for malignancy. The PSA value should be used in conjunction with information available from clinical evaluation and other diagnostic procedures. 16 Per NCEP ATP III Guidelines: Results lower than 40 mg/dL are suggestive of increased risk for coronary artery disease. Results > or=to 60 mg/dL are considered a negative risk factor. 17 Per NCEP ATP III Guidelines: Normal Population <130 Patients with medical conditions: CHD/DM Optimal: <100 Borderline high: 130-159 High: 160-189 Very high: >189 18 after 10/27/15 19 Concerning GFR Guidelines for Americans: Normal function or mild renal disease, if clinically at risk: >/=60 mL/min Moderately decreased: 30-59 Severely decreased: 15-29 Renal failure: <15 20 Concerning GFR Guidelines: Normal function or mild renal disease, if clinically at risk: >/=60 mL/min Moderately decreased: 30-59 Severely decreased: 15-29 Renal failure: <15 Glomerular Filtration Rate (GFR) is estimated based on the MDRD equation, which assumes a steady state for creatinine as recommended by the National Kidney Disease Education Program in conjunction with the National Institutes of Health and the National Kidney Foundation. Clinical conditions in which it may be necessary to measure GFR by using clearance methods include extremes of age and body size, severe malnutrition or obesity, diseases of skeletal muscle, paraplegia or quadriplegia, vegetarian diet, rapidly changing kidney function, and calculation of the dose of potentially toxic drugs that are excreted by the kidneys. 21 Per NCEP ATP III Guidelines: Results lower than 40 mg/dL are suggestive of increased risk for coronary artery disease. Results > or=to 60 mg/dL are considered a negative risk factor. 22 Per NCEP ATP III Guidelines: Normal Population <130 Patients with medical conditions: CHD/DM Optimal: <100 Borderline high: 130-159 High: 160-189 Very high: >189 23 Beginning 07/05/06 PSA values assayed at [facility] uses chemiluminescence methodology manufactured by [employer] for use on the DXI analyzer. Values obtained with different assay methods or kits can not be used interchangeably. Serum PSA measurement is not an absolute test for malignancy. The PSA value should be used in conjunction with information available from clinical evaluation and other diagnostic procedures. 24 Note: Persistent reduction for 3 months or more in an eGFR <60 mL/min/1.73 m2 defines CKD. Patients with eGFR values >/=60 mL/min/1.73 m2 may also have CKD if evidence of persistent proteinuria is present. The original MDRD equation for estimated GFR is not valid for patients less than 18 years of age. Additional information may be found at www.kdoqi.org. 25 0.0 - 0.045 ng/mL: Normal 0.046 - 0.5 ng/mL: Suggestive 0.6 - 1.5 ng/mL: Consistent 26 QUERY: Reflex add FT3? QUERY: Reflex add FT4? 27 6 mos 28 Beginning 07/05/06 PSA values assayed at [facility] uses an EIA methodology manufactured by [employer] for use on the DXI analyzer. Values obtained with different assay methods or kits can not be used interchangeably. Serum PSA measurement is not an absolute test for malignancy. The PSA value should be used in conjunction with information available from clinical evaluation and other diagnostic procedures. 29 Concerning GFR Guidelines: Normal function or mild renal disease, if clinically at risk: >/=60 mL/min Moderately decreased: 30-59 Severely decreased: 15-29 Renal failure: <15 Glomerular Filtration Rate (GFR) is estimated based on the MDRD equation, which assumes a steady state for creatinine as recommended by the National Kidney Disease Education Program in conjunction with the National Institutes of Health and the National Kidney Foundation. Clinical conditions in which it may be necessary to measure GFR by using clearance methods include extremes of age and body size, severe malnutrition or obesity, diseases of skeletal muscle, paraplegia or quadriplegia, vegetarian diet, rapidly changing kidney function, and calculation of the dose of potentially toxic drugs that are excreted by the kidneys. 30 Concerning GFR Guidelines for Americans: Normal function or mild renal disease, if clinically at risk: >/=60 mL/min Moderately decreased: 30-59 Severely decreased: 15-29 Renal failure: <15 31 Per NCEP ATP III Guidelines: Results lower than 40 mg/dL are suggestive of increased risk for coronary artery disease. Results > or=to 60 mg/dL are considered a negative risk factor. 32 Per NCEP ATP III Guidelines: Normal Population <130 Patients with medical conditions: CHD/DM Optimal: <100 Borderline high: 130-159 High: 160-189 Very high: >189 33 Performed at: RN - [facility] [address] [id number] Home Health Travel Ot: Hedy Child MD, Phone: [phone] 34 For -[place] patients multiply result by 1.180 35 This is a corrected report. Any previous versions are stored internally and are available if necessary. OPERATION/PROCEDURE Left hemithyroidectomy with frozen section. 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 LAINE/seferino INTERPRETATION COMMENT This case was submitted to [facility] ([id number]) after internal review. Dr. Jimenez interpreted the small focus on slide 1E as papillary microcarcinoma, in a background of follicular adenoma and Dioni thyroiditis. Dr. Pringle was notified about this amended report at approximately 3:20 pm, 05/17/2012. FROZEN SECTION DIAGNOSIS FROZEN SECTION DIAGNOSIS BY MIGUE DONATO MD. NODULAR GOITER WITH DEGENERATIVE CHANGES. GROSS Received fresh labeled, "LEFT THYROID GLAND, FOR FROZEN SECTION" is a 100 gram 8.1 x 6.5 x 3.3 cm. thyroid that is almost completely occupied by a 4.9 x 4.9 cm. dominant nodule. The surface of the thyroid is smooth, no orientation is provided. The surface is inked and the specimen is serially sectioned. On cut surface this dominant nodule has a rees pink glistening appearance with a central scar. Calcifications are focally felt, there is no evidence of hemorrhage nor necrosis. The background thyroid tissue is grossly unremarkable. Laundry Operator Wash Room sections, include the entire capsule are submitted in 27 GROSS (Continued) blocks after frozen section. JW/clf MICROSCOPIC The nodule within the thyroid is found to be composed of a combination of macro follicular and Micro follicular structures. Scarring changes are seen. There is no significant nuclear atypia within any of the lining cells. Capsule surrounding this expansion is thin. There is no evidence of capsule or vascular invasion. Compressed slit like glands can be seen along the periphery with a morphology exterior to this expansion of more uniform follicles with lymphocytic infiltrates. A small focus (0.2 cm) in slide 1E has follicles with slight nuclear enlargement and clearing. PRE OPERATIVE DIAGNOSIS Left thyroid mass/thyroid disorder. REVIEW CODE CODE: I ----- MIGUE Thomas MD 05/17/12 1525 ----- 36 Note: Persistent reduction for 3 months or more in an eGFR <60 mL/min/1.73 m2 defines CKD. Patients with eGFR values >/=60 mL/min/1.73 m2 may also have CKD if evidence of persistent proteinuria is present. The original MDRD equation for estimated GFR is not valid for patients less than 18 years of age. Additional information may be found at www.kdoqi.org. 37 A low TSH should not be the sole basis for diagnosing primary hyperthyroidism, or primary hypopituitary function. Additional tests are suggested for confirmation. 38 today 39 RESULT IS LESS THAN 0.01uIU/ml 40 Performed at: RN - [facility] [address] [id number] Home Health Travel Ot: Ajit Jackson MD, Phone: [phone] Performed at: [address] [id number] Home Health Travel Ot: Cosmo Mata MD, Phone: [phone] 41 [facility] now offers an enhanced accuracy testosterone test specifically designed for lower testosterone levels (test #643777; Testosterone, Total, Women, Children and Hypogonadal Males, LC/MS-MS). CDC and several academic societies recommend improved testosterone tests for women, children, and hypogonadal males and should be performed using test #837259. 42 QUERY: @EMR Pat ID: [id number] QUERY: @EMR Req #: [id number] 43 A low TSH should not be the sole basis for diagnosing primary hyperthyroidism, or primary hypopituitary function. Additional tests are suggested for confirmation. 44 Performed at: [address] [id number] Home Health Travel Ot: Ajit Jackson MD, Phone: [phone] 45 FASTING soon 46 Normal Range: Male: <4.98 Female: <4.45 47 CRITICAL TO ON 12/09/09 @ 2:15 CONFIRMED 48 soon 49 RESULT IS LESS THAN 0.01uIU/ml 50 11/30/08 LAB.MPK MANUAL DIFF NEEDED 51 RESULT IS LESS THAN 0.01uIU/ml 52 Normal Range: Male: <4.98 Female: <4.45 53 RESULT IS LESS THAN 0.01uIU/ml 54 Normal Range: Male: <4.98 Female: <4.45 55 RESULT IS LESS THAN 0.01uIU/ml 56 FASTING 57 Normal Range: Male: <4.98 Female: <4.45 Procedures Date Code Description Status 05/27/2018 74282 Brief Emotional/Behav Assessment W/ Scoring Doc Per Completed Standard Inst 11/12/2017 94170 Brief Emotional/Behav Assessment W/ Scoring Doc Per Completed Standard Inst 09/03/2015 59483189 Colonoscopy Completed 07/05/2015 57986 Electrocardiogram Complete Completed 07/02/2008 65105 Measure Blood Oxygen Level Single Determination Completed Encounters Type Date Location Provider Dx Diagnosis Office Visit 11/12/2017 [facility] Shari Herring MD G47.33 Obstructive sleep 9:15a apnea (adult) (pediatric) G47.00 Insomnia, unspecified F52.0 Hypoactive sexual desire disorder I10 Essential (primary) hypertension C73 Malignant neoplasm of thyroid gland R00.2 Palpitations Z13.89 Encounter for screening for other disorder Z71.9 Counseling, unspecified Z68.34 Body mass index (BMI) 34.0-34.9, adult Office Visit 05/14/2017 8:45a [facility] Shari Herring MD C73 Malignant neoplasm of thyroid gland G47.33 Obstructive sleep apnea (adult) (pediatric) G47.00 Insomnia, unspecified F52.0 Hypoactive sexual desire disorder I10 Essential (primary) hypertension R00.2 Palpitations M54.5 Low back pain Z12.5 Encounter for screening for malignant neoplasm of prostate Office Visit 11/06/2016 9:15a [facility] Shari Herring MD G47.33 Obstructive sleep apnea (adult) (pediatric) G47.00 Insomnia, unspecified F52.0 Hypoactive sexual desire disorder I10 Essential (primary) hypertension R00.2 Palpitations M54.5 Low back pain C73 Malignant neoplasm of thyroid gland Office Visit 10/23/2016 3:15p [facility] Shari Herring MD G47.00 Insomnia, unspecified Office Visit 04/17/2016 9:15a [facility] Shari Herring MD G47.33 Obstructive sleep apnea (adult) (pediatric) G47.00 Insomnia, unspecified I10 Essential (primary) hypertension C73 Malignant neoplasm of thyroid gland F52.0 Hypoactive sexual desire disorder M54.5 Low back pain R00.2 Palpitations Z11.59 Encounter for screening for other viral diseases Office Visit 11/01/2015 8:45a [facility] Shari Herring MD G47.33 Obstructive sleep apnea (adult) (pediatric) F52.0 Hypoactive sexual desire disorder G47.00 Insomnia, unspecified I10 Essential (primary) hypertension C73 Malignant neoplasm of thyroid gland Office Visit 07/05/2015 3:45p Shari Mora MD R00.2 Palpitations R94.31 Abnormal electrocardiogram [ECG] [EKG] Office Visit 04/26/2015 9:00a Shari Mora MD G47.33 Obstructive sleep apnea (adult) (pediatric) F52.0 Hypoactive sexual desire disorder G47.00 Insomnia, unspecified I10 Essential (primary) hypertension C73 Malignant neoplasm of thyroid gland Office Visit 10/31/2014 10:45a [facility] Shari Herring MD 780.57 Apnea, Unspecified Sleep Apnea 302.71 Hypoactive Sexual Desire Disorder 780.52 Sleep Disturbance, Insomnia Unspecified 241.0 Goiter Nontoxic Uninodular 401.1 Hypertension Benign V76.44 Screening For Malig Jaquan Prostate V76.51 Special Screening For Malignant Neoplasms Colon V77.91 Screening For Lipoid Disorders Office Visit 05/18/2014 2:30p [facility] Shari Herring MD 780.57 Apnea, Unspecified Sleep Apnea 302.71 Hypoactive Sexual Desire Disorder 780.52 Sleep Disturbance, Insomnia Unspecified 241.0 Goiter Nontoxic Uninodular 401.1 Hypertension Benign V76.51 Special Screening For Malignant Neoplasms Colon V76.44 Screening For Malig Jaquan Prostate Plan of Treatment Future Appointment(s):11/18/2018 8:15 am - Schedule, Laboratory at [facility]2018 8:45 am - Shari Herring MD at [facility]05/27/2018 - Shari Herring MDZ13.31 Encounter for screening for depressionComments:screening for depression is negative PHQ-2=0G47.33 Obstructive sleep apnea (adult) (pediatric)New Labs:CBC, Scheduled: 11/18/18Comments:uses cpap regularly - managed by Dr PringleG47.00 Insomnia, unspecifiedComments:needs sleep aid every work day - he does not like extended release as this has caused inappropriatesleepiness a few times. he is cautioned to avoid daily use due to risk of dependence - refill today - [place] [employer] checked and in compliance.F52.0 Hypoactive sexual desire disorderNew Medication:Vardenafil HCL 20 mg - 1 by mouth daily as neededComments:levitra works well. refill [id number] Essential (primary) hypertensionNew Labs:Lipid, Scheduled: 11/18/18Comments:saw cardiology for palpitations and tolerates bystolic.C73 Malignant neoplasm of thyroid glandComments:continue care with dr pringleR00.2 PalpitationsNew Labs:Comprehensive Metabolic Panel, Scheduled: Thyroid Stim Hormone, Scheduled: 11/18/18Comments:controlled with bystolic - I will now treat this. refill vwnvxP92.5 Low back painComments:occasionally uses meloxicam and cyclobenzaprine - doing wellJ31.0 Chronic rhinitisNew Medication:Azelastine HCL (Nasal) 0.15 % - 2 sprays each nostril twice a day as needed for nasal congestionComments:will give prescription for azelastine to use as needed for runny noseM25.561 Pain in RIGHT kneeComments:pain improves if he wears shoe inserts - please call if you would like to see a foot [id number] Body mass index (BMI) 35.0-35.9, adultComments:The BMI is the ratio of height to weight. Weight loss is desirable. your goal BMI is between 18.5 and 25.. Your are overweight. work on improving your diet to help with weight loss.AllFollow up:6 mo annual physical and routine follow-up with fasting labs prior
[2018-06-04 08:45] VITALS: BP 151/81
--- NOTE | 2018-06-04 09:15 | UC ---
Eye Complaint HPI - HPI Summary HPI Summary: Patient has had 2 days fo increased itching, purulent drainage and now his lower lids are swollen. - History of Current Complaint Chief Complaint: UCEye Stated Complaint: B/L EYE COMPLAINT Time Seen by Provider: 06/04/18 09:01 Hx Obtained From: Patient Onset/Duration: Sudden Onset, Lasting Days Timing: Constant Severity Initially: Mild Severity Currently: Mild Pain Intensity: 0 Location of Injury: Conjunctiva, Eye Lid (lower), Sclera Character: Foreign Body Sensation Associated Signs And Symptoms: Positive: Photophobia, Drainage (Purulent) - Allergies/Home Medications Allergies/Adverse Reactions: Allergies Allergy/AdvReac Type Severity Reaction Status Date / Time No Known Allergies Allergy Verified 06/04/18 08:42 Home Medications: Home Medications Zolpidem TAB* [Ambien TAB*] 10 mg PO BEDTIME PRN 06/04/18 [History Confirmed ] PMH/Surg Hx/FS Hx/Imm Hx Previously Healthy: Yes - Surgical History Surgical History: Yes Surgery Procedure, Year, and Place: PARTIAL THYROIDECTOMY - Family History Known Family History: Positive: None Negative: Cardiac Disease, Hypertension - Social History Alcohol Use: None Substance Use Type: None Smoking Status (MU): Never Smoked Tobacco - Immunization History Most Recent Influenza Vaccination: 2017 Most Recent Tetanus Shot: ~2009 Vaccination Up to Date: No Review of Systems All Other Systems Reviewed And Are Negative: Yes Constitutional: Positive: Negative Skin: Positive: Negative Eyes: Positive: Drainage, Eye Redness, Photophobia ENT: Positive: Negative Respiratory: Positive: Negative Cardiovascular: Positive: Negative Gastrointestinal: Positive: Negative Genitourinary: Positive: Negative Motor: Positive: Negative Neurovascular: Positive: Negative Musculoskeletal: Positive: Negative Neurological: Positive: Negative Psychological: Positive: Negative Is Patient Immunocompromised?: No Physical Exam Triage Information Reviewed: Yes Appearance: No Pain Distress, Well-Nourished, Ill-Appearing Vital Signs: Initial Vital Signs Temp 97.1 F 06/04/18 08:43 Pulse 81 06/04/18 08:43 Resp 16 06/04/18 08:43 BP 151/81 06/04/18 08:43 Pulse Ox 99 06/04/18 08:43 Vital Signs Reviewed: Yes Eyes: Positive: Conjunctiva Inflamed, Discharge ENT Exam: Normal ENT: Positive: Pharynx normal, TMs normal Dental Exam: Normal Neck exam: Normal Neck: Positive: Supple, Nontender, No Lymphadenopathy Respiratory Exam: Normal Respiratory: Positive: Chest non-tender, Lungs clear, Normal breath sounds Cardiovascular Exam: Normal Abdominal Exam: Normal Bowel Sounds: Positive: Present Musculoskeletal Exam: Normal Neurological Exam: Normal Psychological Exam: Normal Skin Exam: Normal Eye Complaint Course/Dx - Course Course Of Treatment: hx obtained, exam performed ,meds reviewed, treaed for bilateral conjunctivitis - Differential Dx/Diagnosis Differential Diagnosis/HQI/PQRI: Conjunctivitis Provider Diagnosis: Acute conjunctivitis, bilateral Discharge - Sign-Out/Discharge Documenting (check all that apply): Patient Departure All imaging exams completed and their final reports reviewed: No Studies - Discharge Plan Condition: Stable Disposition: HOME Prescriptions: Erythromycin OPHTH.OINT* [Ilotycin OPHTH.OINT*] 1 applic BOTH EYES TID #1 tube Patient Education Materials: Conjunctivitis (ED) Referrals: Shari Herring MD [Primary Care Provider] - Additional Instructions: 1. use the cream for 3- 5 days 2. Change pillow cases, wash hands whenever they touch the face wash down door knobs and remotes and any thing else that is frequently handled. 3. follow up as needed. - Billing Disposition and Condition Condition: STABLE Disposition: Home - Attestation Statements Provider Attestation: I was available for consult. This patient was seen by the [facility]. The patient was not presented to, seen by, or examined by me. EK
== END 2018-06-04 09:11 | disposition home or self-care (01) ==
LOC: UCCORT 08:32
DX: H10.33 Unspecified acute conjunctivitis, bilateral (principal)
CPT/HCPCS: 99212; G0463

== ENCOUNTER 2018-06-19 13:02 | Emergency (ER) | payer BC ==
[2018-06-19 15:50] VITALS: BP 156/96
--- NOTE | 2018-06-19 16:07 | UC ---
Eye Complaint HPI - HPI Summary HPI Summary: Seen 06/04/18 with conjunctivitis and given erythromycin ointment. Still some D/ C neetu in the morning with itching going down the face into the ears and sinuses. - History of Current Complaint Chief Complaint: UCEye Stated Complaint: RE-CK EYE COMPLAINT Hx Obtained From: Patient Onset/Duration: Sudden Onset, Lasting Weeks - 2, Still Present Timing: Constant Severity Initially: Moderate Severity Currently: Mild Pain Intensity: 0 Aggravating Factor(s): Nothing Alleviating Factor(s): Nothing - Allergies/Home Medications Allergies/Adverse Reactions: Allergies Allergy/AdvReac Type Severity Reaction Status Date / Time No Known Allergies Allergy Verified 06/19/18 15:51 PMH/Surg Hx/FS Hx/Imm Hx Previously Healthy: Yes Other Respiratory History: Sleep Apnea - Surgical History Surgical History: Yes Surgery Procedure, Year, and Place: PARTIAL THYROIDECTOMY - Family History Known Family History: Negative: Cardiac Disease, Hypertension, Diabetes - Social History Occupation: Employed Full-time Lives: With Family Alcohol Use: None Substance Use Type: None Smoking Status (MU): Never Smoked Tobacco - Immunization History Most Recent Influenza Vaccination: 2017 Most Recent Tetanus Shot: ~2009 Vaccination Up to Date: No Review of Systems All Other Systems Reviewed And Are Negative: Yes Eyes: Positive: Blurred Vision - when it [place]., Eye Redness ENT: Positive: Ear Ache - pressure Respiratory: Positive: Cough - with post nasal drip. Physical Exam Triage Information Reviewed: Yes Appearance: Well-Appearing, No Pain Distress, Well-Nourished Vital Signs: Initial Vital Signs Temp 98.7 F 06/19/18 15:47 Pulse 75 06/19/18 15:47 Resp 16 06/19/18 15:47 BP 156/96 06/19/18 15:47 Pulse Ox 100 06/19/18 15:47 Vital Signs Reviewed: Yes Eyes: Positive: Conjunctiva Inflamed - OU ENT: Positive: Pharynx normal, Nasal congestion - with allergic changes, TMs normal Neck exam: Normal Respiratory: Positive: Lungs clear, Wheezing - just expiratory with coughing. Cardiovascular Exam: Normal Musculoskeletal Exam: Normal Neurological Exam: Normal Psychological Exam: Normal Skin Exam: Normal Eye Complaint Course/Dx - Differential Dx/Diagnosis Differential Diagnosis/HQI/PQRI: Conjunctivitis, Keratitis, Periorbital Cellulitis Provider Diagnosis: Allergic conjunctivitis and rhinitis Discharge - Sign-Out/Discharge Documenting (check all that apply): Patient Departure All imaging exams completed and their final reports reviewed: No Studies - Discharge Plan Condition: Stable Disposition: HOME Prescriptions: Azelastine 0.05% (OPHTH)(NF) [Optivar 0.05% (NF)] 1 drop BOTH EYES BID PRN #1 btl PRN Reason: Eye itching LevoCETirizine TAB (NF) [Xyzal TAB (NF)] 5 mg PO DAILY PRN #30 tab PRN Reason: Itching Montelukast Sodium 10 mg PO BEDTIME #30 tablet Patient Education Materials: Allergic Rhinitis (ED), Conjunctivitis (ED), Montelukast (By mouth) Referrals: Shari Herring MD [Primary Care Provider] - Additional Instructions: NEILMED SINUS RINSE: CHECK OUT AT [place] Saline nasal wash helps with mucous, allergies and congestion. It can be used up to twice a day or only as needed. Use lukewarm tap water. It does not have to be sterilized or distilled water. Do 1/3 on each side and snort out of both nostrils. Repeat the process with 1/6 of the bottle on each side with snorting in between to finish the solution in the bottle - Billing Disposition and Condition Condition: STABLE Disposition: Home
== END 2018-06-19 16:37 | disposition home or self-care (01) ==
LOC: UCCORT 13:02
DX: H10.13 Acute atopic conjunctivitis, bilateral (principal); J31.0 Chronic rhinitis
CPT/HCPCS: 99212; G0463

== ENCOUNTER 2019-02-18 11:17 | Emergency (ER) | payer BC ==
[2019-02-18 12:49] VITALS: BP 153/110
--- NOTE | 2019-02-18 13:00 | UC ---
Throat Pain/Nasal Monty HPI - HPI Summary HPI Summary: 53-year-old male who has had cold symptoms for approximate 2 weeks and now has increased head congestion with right-sided sinus pressure. He's a nonsmoker. He denies any fever or chills. - History of Current Complaint Chief Complaint: UCGeneralIllness Stated Complaint: COUGH, CHEST CONGESTION Time Seen by Provider: 02/18/19 12:37 Hx Obtained From: Patient Onset/Duration: Gradual Onset Severity: Mild Pain Intensity: 0 Cough: Nonproductive Associated Signs & Symptoms: Positive: Sinus Discomfort, Nasal Discharge - Allergies/Home Medications Allergies/Adverse Reactions: Allergies Allergy/AdvReac Type Severity Reaction Status Date / Time No Known Allergies Allergy Verified 02/18/19 12:49 PMH/Surg Hx/FS Hx/Imm Hx Previously Healthy: Yes Cardiovascular History: Hypertension Cancer History: Other - Thyroid - Surgical History Surgical History: Yes Surgery Procedure, Year, and Place: PARTIAL THYROIDECTOMY - Family History Known Family History: Positive: None Negative: Cardiac Disease, Hypertension, Diabetes - Social History Alcohol Use: Rare Substance Use Type: None Smoking Status (MU): Never Smoked Tobacco - Immunization History Most Recent Influenza Vaccination: 2017 Most Recent Tetanus Shot: ~2009 Vaccination Up to Date: No Review of Systems All Other Systems Reviewed And Are Negative: Yes ENT: Positive: Nasal Discharge, Sinus Congestion, Sinus Pain/Tenderness Respiratory: Positive: Cough - Nonproductive cough. Is Patient Immunocompromised?: No Physical Exam Triage Information Reviewed: Yes Appearance: Well-Appearing, No Pain Distress, Well-Nourished Vital Signs: Initial Vital Signs Temp 99.1 F 02/18/19 12:44 Pulse 73 02/18/19 12:44 Resp 18 02/18/19 12:44 BP 153/110 02/18/19 12:44 Pulse Ox 99 02/18/19 12:44 Vital Signs Reviewed: Yes Eyes: Positive: Conjunctiva Clear ENT: Positive: Pharynx normal - Yellow postnasal drainage., Nasal congestion, Nasal drainage - Left-sided yellow nasal coryza., TMs normal, Sinus tenderness - Tender over the right frontal sinus., Uvula midline Neck: Positive: Supple, Nontender, No Lymphadenopathy Respiratory: Positive: No respiratory distress, No accessory muscle use, Wheezing - One very small wheeze with forced expiration. Cardiovascular: Positive: RRR, No Murmur, Pulses Normal, Brisk Capillary Refill Musculoskeletal Exam: Normal Neurological Exam: Normal Psychological Exam: Normal Skin Exam: Normal Throat Pain/Nasal Course/Dx - Course Course Of Treatment: Patient is comfortable here. I'm going to treat him for bronchitis with prednisone and sinusitis with doxycycline 100 mg by mouth twice a day 10 days. - Differential Dx/Diagnosis Provider Diagnosis: Sinusitis, Bronchitis Discharge ED - Sign-Out/Discharge Documenting (check all that apply): Patient Departure All imaging exams completed and their final reports reviewed: No Studies - Discharge Plan Condition: Good Disposition: HOME Prescriptions: DOXYcycline CAP(*) [DOXYcycline 100MG CAP(*)] 100 mg PO BID 10 Days #20 cap predniSONE TAB* [Deltasone 10 MG TAB*] 10 mg PO DAILY 10 Days #30 tab Patient Education Materials: Sinusitis (ED), Acute Bronchitis (ED) Referrals: Shari Herring MD [Primary Care Provider] - Additional Instructions: Increase fluids, no dairy products, antacids or multivitamins 2 hours before you take doxycycline and 2 hours after you take the doxycycline however be sure and take it with food. Take the prednisone with food. Definite follow-up with your primary care provider if no improvement in 4 or 5 days. - Billing Disposition and Condition Condition: GOOD Disposition: Home - Attestation Statements Provider Attestation: I was available for consult. This patient was seen by the [facility]. The patient was not presented to, seen by, or examined by me. -Rashmi
== END 2019-02-18 13:03 | disposition home or self-care (01) ==
LOC: UCCORT 11:17
DX: J32.9 Chronic sinusitis, unspecified (principal); J40 Bronchitis, not specified as acute or chronic; I10 Essential (primary) hypertension
CPT/HCPCS: 99212; G0463